=== PATIENT | female | born 1990 | race Caucasian/White ===

== ENCOUNTER 2022-07-27 21:48 | Emergency (ER) | payer MEDICAID ==
--- NOTE | 2022-07-27 23:10 | NUR ---
Patient left without being seen. ER is saturated, 2 ICU patients in room 1 and 2 patients in the hallway waiting to be seen
== END 2022-07-27 23:25 | disposition left against medical advice (07) ==
LOC: ER 21:48
DX: Z53.21 Procedure and treatment not carried out due to patient leaving prior to being seen by health care provider (principal)